=== PATIENT | male | born 1975 | race Caucasian/White ===

== ENCOUNTER → 2020-07-27 | Outpatient (CLI) | payer BC ==
[~2020-07-27] MED LIST: NKHM
== END | disposition home or self-care (01) ==
LOC: COVID19 09:27
PROVIDERS: ATTEND Internal Medicine
DX: Z20.828 Contact with and (suspected) exposure to other viral communicable diseases (principal)

== ENCOUNTER → 2021-05-10 | Outpatient (CLI) | payer BC | END | disposition home or self-care (01) | LOC: COVID19 15:26 | PROVIDERS: ATTEND Internal Medicine | DX: Z11.52 Encounter for screening for COVID-19 (principal) ==

== ENCOUNTER → 2021-07-24 | Outpatient (CLI) | payer BC | END | disposition home or self-care (01) | LOC: COVID19 15:03 | PROVIDERS: ATTEND Internal Medicine | DX: Z11.52 Encounter for screening for COVID-19 (principal) ==

== ENCOUNTER 2022-02-04 13:40 | Emergency (ER) | payer BC ==
[~2022-02-04] VITALS: Ht 175.2 cm; Wt 64.9 kg
== END 2022-02-04 16:25 | disposition left against medical advice (07) ==
LOC: ED 13:40
DX: R42 Dizziness and giddiness (principal); Z53.21 Procedure and treatment not carried out due to patient leaving prior to being seen by health care provider

== ENCOUNTER → 2022-02-05 | Outpatient (CLI) | payer BC ==
[2022-02-05 11:51] LABS: BASO % 0.5 % (0.0-1.0); EOS # 0.2 10*3/uL (0.0-0.4); EOS % 3.8 % (1.0-4.0); HEMATOCRIT 39.2 % (42.0-52.0); LYMPH # 2.7 10*3/uL (1.3-4.4); LYMPH % 42.5 % (27.0-41.0); MEAN CELL VOLUME 89.7 fl (80.0-94.0); MEAN CORPUSCULAR HGB CONC 33.4 g/dl (33.0-37.0); MEAN PLATELET VOLUME 8.7 fl (9.6-12.3); MONO # 0.5 10*3/uL (0.1-1.0); MONO % 7.2 % (3.0-9.0); NEUT # 2.9 10*3/uL (2.3-7.9); NEUT % 45.7 % (47.0-73.0); PLATELET COUNT AUTOMATED 533 10*3/uL (130-400); RED BLOOD COUNT 4.37 10*6/uL (4.50-5.90); RED CELL DISTRI WIDTH 13.1 % (0-14.5); WHITE BLOOD COUNT 6.4 10*3/uL (4.8-10.8)
[2022-02-05 12:02] LABS: BUN 14 mg/dl (7-24); CHLORIDE 108 mmol/L (98-107); CREATININE 0.93 mg/dL (0.70-1.30); POTASSIUM 4.2 mmol/L (3.5-5.1); SODIUM 140 mmol/L (136-145)
== END | disposition home or self-care (01) ==
LOC: LAB 11:34
PROVIDERS: ATTEND Nurse Practitioner
DX: R00.1 Bradycardia, unspecified (principal); R94.31 Abnormal electrocardiogram [ECG] [EKG]; I10 Essential (primary) hypertension

== ENCOUNTER → 2022-02-20 | Outpatient (CLI) | payer BC | END | disposition home or self-care (01) | LOC: CARD 00:05 | PROVIDERS: ATTEND Family Medicine | DX: R55 Syncope and collapse (principal); R07.9 Chest pain, unspecified ==

== ENCOUNTER → 2022-02-21 | Outpatient (CLI) | payer BC | END | disposition home or self-care (01) | LOC: CARD 08:00 | PROVIDERS: ATTEND Family Medicine | DX: I49.3 Ventricular premature depolarization (principal) ==

== ENCOUNTER 2023-02-07 00:08 | Inpatient (IN) | payer OTHER ==
[2023-02-07] VITALS (10 sets, daily range): BP systolic 98–122; BP diastolic 44–90
[~2023-02-07] VITALS: Ht 175.2 cm; Wt 64.1 kg
[2023-02-07 01:19] LABS: BASO # 0.1 10*3/uL (0.0-0.1); BASO % 0.4 % (0.0-1.0); EOS # 0.4 10*3/uL (0.0-0.4); EOS % 2.8 % (1.0-4.0); HEMATOCRIT 35.2 % (42.0-52.0); LYMPH # 2.4 10*3/uL (1.3-4.4); LYMPH % 18.1 % (27.0-41.0); MEAN CELL VOLUME 88.7 fl (80.0-94.0); MEAN CORPUSCULAR HGB 30.7 pg (27.0-31.0); MEAN CORPUSCULAR HGB CONC 34.7 g/dl (33.0-37.0); MEAN PLATELET VOLUME 8.8 fl (9.6-12.3); MONO # 0.8 10*3/uL (0.1-1.0); MONO % 6.3 % (3.0-9.0); NEUT # 9.6 10*3/uL (2.3-7.9); NEUT % 72.1 % (47.0-73.0); PLATELET COUNT AUTOMATED 329 10*3/uL (130-400); RED BLOOD COUNT 3.97 10*6/uL (4.50-5.90); RED CELL DISTRI WIDTH 13.5 % (0-14.5); WHITE BLOOD COUNT 13.3 10*3/uL (4.8-10.8)
[2023-02-07 01:45] LABS: ALKALINE PHOSPHATASE 75 U/L (46-116); BUN 13 mg/dl (9-23); CHLORIDE 105 mmol/L (98-107); POTASSIUM 3.1 mmol/L (3.4-5.1); SGPT/ALT 8 U/L (10-49); TOTAL PROTEIN 6.5 gm/dL (6.0-8.0)
[2023-02-07 02:14] LABS: BILIRUBIN 1+ (Negative); BLOOD Negative (Negative); CLARITY Cloudy (Clear); COLOR Dark Yellow (Yellow); GLUCOSE Negative (Negative); KETONE Trace (Negative); LEUKO ESTERASE Trace (Negative); NITRITE Negative (Negative); PH 6.5 (4.5-8.0); SPECIFIC GRAVITY 1.025 (1.001-1.030)
[2023-02-07 02:58] LABS: BACTERIA 1+; CALCIUM OXALATE CRYSTALS Trace; MUCOUS 1+
[2023-02-07] MEDS ORDERED: MINIPRESS1 M1 PO (07:20)
[2023-02-07] MEDS ORDERED: LEXAPRO20 MG PO (15:48)
[2023-02-08] VITALS: BP 123/78
[2023-02-08 06:08] LABS: BUN 10 mg/dl (9-23); CHLORIDE 109 mmol/L (98-107)
[2023-02-08 06:12] LABS: POTASSIUM 4.4 mmol/L (3.4-5.1)
[2023-02-08 06:26] LABS: BASO # 0.1 10*3/uL (0.0-0.1); BASO % 0.8 % (0.0-1.0); EOS # 0.5 10*3/uL (0.0-0.4); EOS % 6.8 % (1.0-4.0); HEMATOCRIT 36.6 % (42.0-52.0); LYMPH # 3.7 10*3/uL (1.3-4.4); LYMPH % 46.8 % (27.0-41.0); MEAN CORPUSCULAR HGB 30.3 pg (27.0-31.0); MEAN CORPUSCULAR HGB CONC 32.8 g/dl (33.0-37.0); MEAN PLATELET VOLUME 9.5 fl (9.6-12.3); MONO # 0.6 10*3/uL (0.1-1.0); MONO % 7.6 % (3.0-9.0); NEUT % 37.7 % (47.0-73.0); PLATELET COUNT AUTOMATED 369 10*3/uL (130-400); RED BLOOD COUNT 3.96 10*6/uL (4.50-5.90); RED CELL DISTRI WIDTH 13.9 % (0-14.5); WHITE BLOOD COUNT 7.8 10*3/uL (4.8-10.8)
[2023-02-08 06:30] LABS: MEAN CELL VOLUME 92.4 fl (80.0-94.0)
[2023-02-08 08:00] VITALS: BP 125/77
[2023-02-08 12:00] VITALS: BP 113/67
== END 2023-02-08 14:45 | disposition home or self-care (01) | DRG 312 ==
LOC: ED 00:08 → 4E 04:47 → EDHOLD 04:47 → 4E 14:48
PROVIDERS: Emergency Medicine; Student in an Organized Health Care Education/Training Program; ADMIT Internal Medicine; ATTEND Internal Medicine
DX: I95.1 Orthostatic hypotension (principal); N30.00 Acute cystitis without hematuria; I10 Essential (primary) hypertension; F41.9 Anxiety disorder, unspecified; F32.A Depression, unspecified; S09.90XA Unspecified injury of head, initial encounter; R73.9 Hyperglycemia, unspecified; E87.6 Hypokalemia; D72.829 Elevated white blood cell count, unspecified; F17.210 Nicotine dependence, cigarettes, uncomplicated; D64.9 Anemia, unspecified; F43.10 Post-traumatic stress disorder, unspecified; F17.200 Nicotine dependence, unspecified, uncomplicated; Z83.3 Family history of diabetes mellitus; Z71.6 Tobacco abuse counseling; X58.XXXA Exposure to other specified factors, initial encounter; Y93.89 Activity, other specified; Y92.89 Other specified places as the place of occurrence of the external cause; Y99.8 Other external cause status

== ENCOUNTER → 2023-05-02 | Outpatient (CLI) | payer OTHER ==
[~2023-05-02] MED LIST changes: +LEXAPRO20 MG PO; +MINIPRESS1 M1 PO
[2023-05-02 11:48] LABS: BUN 12 mg/dl (9-23); CHLORIDE 105 mmol/L (98-107); POTASSIUM 4.5 mmol/L (3.4-5.1)
== END | disposition home or self-care (01) ==
LOC: US 09:00 → LAB 09:32 → MRI 10:00
PROVIDERS: ATTEND Psychiatry & Neurology Clinical Neurophysiology
DX: I65.23 Occlusion and stenosis of bilateral carotid arteries (principal); J32.0 Chronic maxillary sinusitis; H93.13 Tinnitus, bilateral; R55 Syncope and collapse; R00.1 Bradycardia, unspecified; R42 Dizziness and giddiness; R41.0 Disorientation, unspecified; Z79.899 Other long term (current) drug therapy

== ENCOUNTER → 2024-03-05 | Outpatient (CLI) | payer MEDICAID ==
[~2024-03-05] MED LIST changes: +GADOTERATE MEGLUMINE 7.5 MMOL/15 ML VIAL IV ONE
== END | disposition home or self-care (01) ==
LOC: MRI 07:14
PROVIDERS: ATTEND Nurse Practitioner Primary Care
DX: R42 Dizziness and giddiness (principal); R55 Syncope and collapse; H55.00 Unspecified nystagmus; H53.9 Unspecified visual disturbance